=== PATIENT | female | born 1990 | race Caucasian/White ===

== ENCOUNTER → 2016-11-02 | Outpatient (CLI) | payer OTHER ==
[~2016-11-02] MED LIST: CLARITIN10 MG PO; IMITREX PO; NAPROSYN500 MG PO; NORCO 7.5-3251 EACH PO; ZOFRAN8 MG PO
[2016-11-02 10:08] LABS: HEMOGLOBIN 14.9 gm/dl (12.3-15.3); RED BLOOD COUNT 5.13 M/UL (4.00-5.10); WHITE BLOOD COUNT 7.6 K/UL (4.5-11.0)
== END ==
LOC: OPSV2 09:00
PROVIDERS: Obstetrics & Gynecology
DX: Z01.812 Encounter for preprocedural laboratory examination (principal); R10.2 Pelvic and perineal pain; Z88.1 Allergy status to other antibiotic agents
CPT/HCPCS: 36415; 81001; 85025

== ENCOUNTER → 2016-11-10 | Day surgery (SDC) | payer OTHER ==
[~2016-11-10] VITALS: Ht 160 cm; Wt 69.9 kg
== END | disposition home or self-care (01) ==
LOC: OR 07:21
PROVIDERS: Obstetrics & Gynecology
PROC: 0TQ60ZZ Repair Right Ureter, Open Approach (ICD-10-PCS; 2016-11-10)
PROC: 0TQ70ZZ Repair Left Ureter, Open Approach (ICD-10-PCS; principal; 2016-11-10 09:00)
DX: N80.3 Endometriosis of pelvic peritoneum (principal); N94.10 Unspecified dyspareunia; R10.2 Pelvic and perineal pain; J45.909 Unspecified asthma, uncomplicated; I10 Essential (primary) hypertension; Z88.1 Allergy status to other antibiotic agents; Z79.899 Other long term (current) drug therapy; Z87.440 Personal history of urinary (tract) infections; Z86.69 Personal history of other diseases of the nervous system and sense organs
CPT/HCPCS: 84703; J1100; J1885; J2250; J2405; J2710; J2795; J3010; J7030; J7120